=== PATIENT | male | born 1960 | race Caucasian/White ===

== ENCOUNTER 2018-01-24 19:52 | Inpatient (IN) | payer OTHER ==
[~2018-01-24] VITALS: Ht 175.3 cm; Wt 97.5 kg
--- NOTE | 2018-01-24 19:52 | NUR ---
PT TAKEN TO BED 1
--- NOTE | 2018-01-24 19:55 | NUR ---
ABIBA FOR ETOH FROM HOME WITH SYNCOPAL EPISODE PT DENIES N/V/D; SKIN IS PINK/WARM/DRY;AAOX4; LUNGS CLEAR BL; HR EVEN AND REGULAR; PATIENT POSITIONED FOR COMFORT; HOB ELEVATED; BEDRAILS UP X2; BED DOWN. ER MD MADE AWARE OF PT STATUS.
[2018-01-24 19:57] VITALS: BP 122/66
--- NOTE | 2018-01-24 20:46 | NUR ---
Dr. Lynch evaluating patient at bedside.
[2018-01-24] MEDS ORDERED: NACL 0.9% 1,000 ML IV ONE (20:50)
--- NOTE | 2018-01-24 21:25 | NUR ---
PT SENT TO [facility]
--- NOTE | 2018-01-24 21:25 | NUR ---
Felipe hunt in [facility] - 01/24/18 at 2205 by LEONARDO PT TAKEN TO CT
[2018-01-24 21:57] LABS: ALBUMIN 4.2 g/dL (3.4-5.0); ANION GAP 13.1 (8-16); CARBON DIOXIDE 27.8 mmol/L (21-32); CREATININE 0.8 mg/dL (0.7-1.3); TOTAL BILIRUBIN 0.7 mg/dL (0.0-1.0)
[2018-01-24 22:03] LABS: POTASSIUM 2.9 mmol/L (3.5-5.1)
[2018-01-24] MEDS ORDERED: KCL 20 MEQ/WATER INJ PREMIX 100 ML IV ONE (22:05)
[2018-01-24 22:40] LABS: BARBITURATE, URINE NEG. ng/ml (NEG <=200); BENZODIAZEPINE, URINE NEG. ng/mL (NEG <=200); CANNABINOID, URINE NEG. ng/mL (NEG <=50); COCAINE, URINE NEG. ng/mL (NEG <=300); OPIATE, URINE NEG. ng/mL (NEG <=2000); PHENCYCLIDINE SCREEN,URINE NEG. ng/mL (NEG <=25)
[2018-01-24] MEDS ORDERED: MORPHINE SULFATE 2 MG/ML SYR IVP PRN (23:20)
[2018-01-24] MEDS ORDERED: LORazepam 2 MG/ML VIAL IVP PRN (23:20)
[2018-01-24] MEDS ORDERED: ACETAMINOPHEN 325 MG TAB PO PRN (23:20)
[2018-01-24] MEDS ORDERED: ONDANSETRON 4 MG/2 ML VIAL IVP PRN (23:20)
[2018-01-24 23:36] LABS: BASOPHILS % (AUTO) 0.3 % (0.0-2.0); EOSINOPHILS # (AUTO) 0.1 K/uL (0-0.4); EOSINOPHILS % (AUTO) 1.8 % (0.0-4.0); HEMATOCRIT 27.9 % (36-52); HEMOGLOBIN 10.2 g/dL (12.0-18.0); LYMPHOCYTES # (AUTO) 0.7 K/uL (2.0-11.5); LYMPHOCYTES % (AUTO) 11.9 % (20.5-51.1); MEAN CORPUSCULAR HEMOGLOBIN 33 pg (27-31); MEAN CORPUSCULAR HGB CONC 37 g/dL (33-37); MEAN CORPUSCULAR VOLUME 90.8 fL (80-94); MONOCYTES # (AUTO) 0.3 K/uL (0.8-1.0); MONOCYTES % (AUTO) 4.4 % (1.7-9.3); NEUTROPHILS # (AUTO) 4.8 K/uL (1.8-7.7); NEUTROPHILS % (AUTO) 81.6 % (42.2-75.2); PLATELET COUNT (AUTO) 305 K/uL (140-450); RED BLOOD CELL COUNT(AUTO) 3.07 MIL/uL (4.20-6.10); RED CELL DISTRIBUTION WIDTH 12.5 % (11.6-13.7); WHITE BLOOD COUNT (AUTO) 5.9 K/uL (4.8-10.8)
--- NOTE | 2018-01-24 23:50 | NUR ---
PT ARRIVED ON UNIT VIA [facility] WITH ER NURSE. PT IN STABLE CONDITION. PT ABLE TO SELF TRANSFER FROM [facility] TO BED. PT ACCOMPANIED BY SISTER. PT IS A/0 X4. IV ACCES IN L HAND 20G WITH POTASSIUM INFUSING. IV IS PATENT AND INTACT. HEALING SCABS NOTED ON LLE. PICTURE IN CHART. HEART MONITOR APPLIED. MRSA SWAB TAKEN. ORIENTED PT TO ROOM AND USE OF CALL LIGHT. BED IS LOCKED, LOW POSITION, WITH SIDE RAILS UP X2. BOARD UPDATED. FALL PRECAUTIONS IN PLACE. WILL CONTINUE TO MONITOR PT.
[2018-01-25] VITALS (7 sets, daily range): BP systolic 156–186; BP diastolic 80–96
--- NOTE | 2018-01-25 00:03 | NUR ---
PT AWAKE, ALERT. NO S/S OF RESPIRATORY DISTRESS NOTED. TRANSFERRED PT TO TELE 111A BY ERIC. REPORT GIVEN TO ELÍAS ALLEN. PT'S SISTER WITH PT. PT IN STABLE CONDITION AT THIS MOMENT.
--- NOTE | 2018-01-25 00:15 | NUR ---
POTASSIUM INFUSION COMPLETE. PHARMACY CALLED REQUESTING CLARIFICATION OF ORDERS. MARCUS MAGALLANES MD.
[2018-01-25] MEDS ORDERED: FERR-252 PO (00:53)
[2018-01-25] MEDS ORDERED: THIA-34 PO ×2 (00:53→18:39)
[2018-01-25] MEDS ORDERED: MULT-464 PO (00:53)
[2018-01-25] MEDS ORDERED: SIMV20TA1 PO (00:53)
[2018-01-25] MEDS ORDERED: TAMS0.4C96 PO (00:53)
[2018-01-25] MEDS ORDERED: ORE25 PO (00:53)
[2018-01-25] MEDS ORDERED: ENAL10TA8 PO (00:53)
[2018-01-25] MEDS ORDERED: LISI-420 PO (00:53)
[2018-01-25] MEDS ORDERED: METO25TE2 PO (00:53)
--- NOTE | 2018-01-25 01:15 | NUR ---
MARIA A MEDINA. WILL WAIT FOR CALL.
--- NOTE | 2018-01-25 01:35 | NUR ---
PT RIPPED OUT IV. IV CANULA INTACT. WILL START NEW IV ACCESS.
--- NOTE | 2018-01-25 01:52 | NUR ---
PAGED AGAIN. WILL WAIT FOR CALL BACK.
--- NOTE | 2018-01-25 02:02 | NUR ---
NEW IV STARTED IN L WRIST 20G. IV IS FLUSHING WELL. PT TOLERATED WELL. WILL CONTINUE TO MONITOR.
--- NOTE | 2018-01-25 03:10 | NUR ---
SPOKE WITH . ORDERS CLARIFIED. WILL NOTIFY PHARMACY.
[2018-01-25] MEDS ORDERED: NACL 3% 500 ML IV ONE (04:00)
--- NOTE | 2018-01-25 04:10 | NUR ---
VS CHECKED. PT BP ELEVATED. WILL NOTIFY MD. PT HAS NO SIGNS OF DISTRESS. WILL CONTINUE TO MONITOR.
--- NOTE | 2018-01-25 05:02 | NUR ---
PAGED AGAIN. WILL WAIT FOR CALL BACK.
--- NOTE | 2018-01-25 05:14 | NUR ---
IVF STARTED. BP RECHECKED, 186/92. WAITING FOR MD TO CALL BACK. WILL CONTINUE TO MONITOR PT.
[2018-01-25 06:28] LABS: BASOPHILS % (AUTO) 0.3 % (0.0-2.0); EOSINOPHILS % (AUTO) 0.5 % (0.0-4.0); HEMATOCRIT 26.3 % (36-52); HEMOGLOBIN 9.5 g/dL (12.0-18.0); LYMPHOCYTES # (AUTO) 0.7 K/uL (2.0-11.5); LYMPHOCYTES % (AUTO) 9.2 % (20.5-51.1); MEAN CORPUSCULAR HEMOGLOBIN 33 pg (27-31); MEAN CORPUSCULAR HGB CONC 36 g/dL (33-37); MEAN CORPUSCULAR VOLUME 90.2 fL (80-94); MONOCYTES # (AUTO) 0.4 K/uL (0.8-1.0); NEUTROPHILS # (AUTO) 6.1 K/uL (1.8-7.7); PLATELET COUNT (AUTO) 267 K/uL (140-450); RED BLOOD CELL COUNT(AUTO) 2.91 MIL/uL (4.20-6.10); RED CELL DISTRIBUTION WIDTH 12.8 % (11.6-13.7); WHITE BLOOD COUNT (AUTO) 7.2 K/uL (4.8-10.8)
--- NOTE | 2018-01-25 06:39 | NUR ---
PAGED AGAIN. WILL WAIT FOR CALL BACK.
[2018-01-25 06:53] LABS: ALBUMIN 3.9 g/dL (3.4-5.0); ANION GAP 13.1 (8-16); CREATININE 0.6 mg/dL (0.7-1.3); POTASSIUM 3.1 mmol/L (3.5-5.1); TOTAL BILIRUBIN 0.9 mg/dL (0.0-1.0)
--- NOTE | 2018-01-25 07:15 | NUR ---
ENDORSED PT TO DAY SHIFT NURSE FOR CONTINUITY OF CARE. PT IN STABLE CONDITION.
--- NOTE | 2018-01-25 07:16 | NUR ---
RECEIVED REPORT FROM BUFFING TURNER AND COUNTER NURSE WILL CONTINUE WITH PLAN OF CARE. PATIENT LAST B/P 186/ NURSE PAGED MD. WILL NOTIFY MD OF ELEVATED B/P
--- NOTE | 2018-01-25 07:50 | NUR ---
NOTIFIED DR. JOSEPH REGARDING PT'S ELEVATED BP (175/89 MMHG, HR: 108/MIN. PT ASYMPTOMATIC. NO C/O PAIN. NO SOB NOTED). STATED HE WILL PLACE ORDERS. .
[2018-01-25] MEDS ORDERED: DEXT 5% / NACL 0.2% 1,000 ML IV SCH (08:05)
--- NOTE | 2018-01-25 08:43 | NUR ---
PATIENT HAS BEEN SCREENED AND CATEGORIZED MODERATE NUTRITION RISK. PATIENT WILL BE SEEN WITHIN 3-5 DAYS OF ADMISSION. 01/27/18 01/29/[address]
[2018-01-25] MEDS: hydrALAZINE 25 MG TAB PO PRN ×2 (08:48→12:45)
[2018-01-25] MEDS ORDERED: THIAMINE 200 MG/2 ML VIAL IM SCH (09:00)
[2018-01-25] MEDS ORDERED: NIFEdipine 30 MG TABER PO SCH (09:00)
[2018-01-25] MEDS ORDERED: KCL 20 MEQ/WATER INJ PREMIX 100 ML IV SCH (09:00)
[2018-01-25] MEDS ORDERED: FOLIC ACID 1 MG TAB PO SCH (09:00)
[2018-01-25] MEDS ORDERED: NACL 0.9% 1,000 ML IV SCH (09:00)
--- NOTE | 2018-01-25 09:08 | NUR ---
PT REFUSED ROBLEDO CATHETER INSERTION FOR STRICT I&O MONITORING, RISKS AND BENEFITS EXPLAINED TO PT. PT VERBALIZED UNDERSTANDING. CLEAN URINAL PLACED AT THE BEDSIDE TO MONITOR URINE OUTPUT.
--- NOTE | 2018-01-25 09:15 | NUR ---
CM NOTE ADMISSION CHART REVIEW DONE. INITIAL REVIEW FAXED TO [facility] [phone] RAZIA # [phone]
--- NOTE | 2018-01-25 09:30 | NUR ---
PT SEEN BY DR. JOSEPH WITH NEW ORDERS. DR. JOSEPH ALSO NOTIFIED REGARDING PT'S REFUSAL OF INDWELLING ROBLEDO CATHETER PLACEMENT.
--- NOTE | 2018-01-25 10:30 | NUR ---
URINE SPECIMEN COLLECTED AND SENT TO LAB FOR RANDOM URINE NA, CREATININE AND OSMOLALITY ORDERED.
--- NOTE | 2018-01-25 10:39 | NUR ---
PT C/O PAIN ON THE IV SITE WHILE K-RIDER IS ON GOING. DR. JOSEPH MADE AWARE. K RIDER DISCONTINUED. K-DUR PO GIVEN ORDERED TO REPLACE K LOSS.
[2018-01-25] MEDS ORDERED: POTASSIUM CHLORIDE 10 MEQ TABER PO SCH (10:40)
--- NOTE | 2018-01-25 12:40 | NUR ---
PATIENT COMPLAINED OF NAUSEA. ZOFRAN GIVEN PER ORDERS. WILL CONTINUE TO MONITOR. CALL LIGHT WITHIN REACH AND BED ON LOWEST POSITION.
--- NOTE | 2018-01-25 13:15 | NUR ---
PATIENT REPORTS DECREASE IN NAUSEA. CALL LIGHT WITHIN REACH. WILL CONTINUE TO MONITOR
[2018-01-25 17:15] LABS: ANION GAP 13.7 (8-16); CARBON DIOXIDE 26.9 mmol/L (21-32); POTASSIUM 3.6 mmol/L (3.5-5.1)
[2018-01-25 17:16] LABS: CREATININE 0.7 mg/dL (0.7-1.3); TOTAL BILIRUBIN 1.1 mg/dL (0.0-1.0)
[2018-01-25 17:17] LABS: ALBUMIN 3.8 g/dL (3.4-5.0)
[2018-01-25 18:11] LABS: CREATININE,URINE RANDOM 60 mg/dL (30-125); URINE SODIUM, RANDOM 56 mmol/l (40-220)
[2018-01-25] MEDS ORDERED: VITA1TAB44 PO (18:39)
--- NOTE | 2018-01-25 19:18 | NUR ---
Motorcycle Delivery Driver Notes:I faxed Patient's MD order for high risk Clinic follow up appointment before discharge to [facility].
--- NOTE | 2018-01-25 19:24 | NUR ---
INFORMED PATIENT REGARDING DISCHARGE ORDER, PATIENT VERBALIZED UNDERSTANDING. PATIENT IS STABLE. NO DISTRESS NOTED AT THIS TIME. ENDORSED PATIENT TO EMAIL DESIGNER NURSE TO CONTINUE THE DISCHARGE PROCESS. HOME MEDS FROM PHARMACY ENDORSED TO EMAIL DESIGNER NURSE TO GIVE TO PATIENT UPON DISCHARGE.
--- NOTE | 2018-01-25 19:25 | NUR ---
RECEIVED REPORT FROM DAY SHIFT RN FOR CONTINUITY OF CARE. PT IS A/OX4, ON ROOM AIR. PT IS ABLE TO MAKE NEEDS KNOWN, ABLE TO FOLLOW COMMANDS. PT IS ON BEDREST AND SKIN IS INTACT. PT HAS A 20G IV TO LEFT FOREARM, ASYMPTOMATIC. DISCUSSED PLAN OF CARE WITH PT, PT VERBALIZED UNDERSTANDING. VITAL SIGNS WITHIN NORMAL LIMITS. PT STABLE, NO SIGNS OF DISTRESS NOTED AT THIS TIME. BED IN LOWEST POSITION, BED ALARM ON. CALL LIGHT WITHIN REACH, WILL CONTINUE TO MONITOR.
--- NOTE | 2018-01-25 20:20 | NUR ---
DISCHARGE INSTRUCTIONS AND EDUCATION GIVEN TO PT AND HIS SISTER, GAVE OPPORTUNITY FOR THEM TO ASK QUESTIONS AND ANSWERED QUESTIONS. PT SIGNED ALL PAPERWORK. REMOVED IV, SCD'S, AND TELE MONITOR. PT GOT DRESSED AND PASTEURIZING SUPERVISOR WHEELED PT OUT OF UNIT IN WHEELCHAIR WITH HIS SISTER AND OF HIS PERSONAL BELONGINGS. PT LEFT IN STABLE CONDITION.
--- NOTE | 2018-01-25 20:40 | NUR ---
DISCHARGE INSTRUCTIONS AND EDUCATION GIVEN TO PT AND HIS SISTER, GAVE OPPORTUNITY FOR THEM TO ASK QUESTIONS AND ANSWERED QUESTIONS. PT SIGNED ALL PAPERWORK. REMOVED IV, SCD'S, AND TELE MONITOR. PT GOT DRESSED AND REAL ESTATE LEGAL SECRETARY WHEELED PT OUT OF UNIT IN WHEELCHAIR WITH HIS SISTER. PT LEFT IN STABLE CONDITION. Addendum: 01/25/18 at 2233 by Josefa Tong RN PLEASE DISREGARD.
[2018-01-26] MEDS ORDERED: THIAMINE 100 MG TAB PO SCH (09:00)
== END 2018-01-25 20:20 | disposition home or self-care (01) | DRG 425 ==
LOC: MED 19:52 → MTU 23:19
PROVIDERS: ADMIT Hospitalist; ATTEND Hospitalist
DX: E87.6 Hypokalemia (principal); G92 Toxic encephalopathy; F10.229 Alcohol dependence with intoxication, unspecified; E87.1 Hypo-osmolality and hyponatremia; E78.5 Hyperlipidemia, unspecified; I10 Essential (primary) hypertension; F17.210 Nicotine dependence, cigarettes, uncomplicated; Y90.6 Blood alcohol level of 120-199 mg/100 ml; Z85.46 Personal history of malignant neoplasm of prostate; Z92.3 Personal history of irradiation
CPT/HCPCS: 36415; 70450; 71045; 72125; 80053; 80305; 82570; 83735; 83930; 83935; 84300; 84484; 85025; 87081; 93005; 96360; 99285; G0482; J2405; J3411; J3480; J3490; J7030; Q0092

== ENCOUNTER 2018-04-23 08:46 | Day surgery (SDC) | payer OTHER ==
[~2018-04-23 08:46] MED LIST: ENAL10TA8 PO; FERR-252 PO; METO25TE2 PO; MULT-464 PO; SIMV20TA1 PO; TAMS0.4C96 PO; THIA-34 PO; VITA1TAB44 PO
[2018-04-23] MEDS ORDERED: KETOROLAC 30 MG/ML VIAL ONE (10:31)
[2018-04-23] MEDS ORDERED: LIDOCAINE 2% 100 MG/5 ML UJET TP ONE (10:31)
[2018-04-23] MEDS ORDERED: fentaNYL 0.05 MG/ML VIAL ONE (10:39)
[2018-04-23] MEDS ORDERED: LIDOCAINE VISCOUS 2% 20 ML UDC ONE (10:39)
[2018-04-23] MEDS ORDERED: MIDAZOLAM 2 MG/2 ML VIAL ONE (10:39)
== END 2018-04-23 10:45 | disposition home or self-care (01) ==
LOC: MDS 08:46 → MMU 08:46 → MDS 10:45
PROVIDERS: ATTEND Internal Medicine Gastroenterology
DX: K70.9 Alcoholic liver disease, unspecified (principal); K44.9 Diaphragmatic hernia without obstruction or gangrene; I10 Essential (primary) hypertension; E78.5 Hyperlipidemia, unspecified
CPT/HCPCS: J1885; J2250; J3010

== ENCOUNTER 2018-05-27 17:12 | Emergency (ER) | payer OTHER ==
[~2018-05-27] VITALS: Ht 167.6 cm; Wt 93.1 kg
[2018-05-27 17:26] VITALS: BP 157/95
--- NOTE | 2018-05-27 17:36 | NUR ---
Note undone in EDM - 05/27/18 at 1741 by MED1 58/M BIB FAMILY W/ C/O SYNCOPAL EPISODE AT 8 AM THIS MORNING. STATES HE DOES NOT KNOW WHY OR HOW. STATES HE WAS DRINKING ALCOHOL PRIOR TO THE EPISODE. STATES HE HAD 3 BEERS, BUT ACTING INEBRIATED, SLURRING SPEECH. AAOX4. GCS 15, AMBULATORY W/ UNSTEADY GAIT. RR EVEN AND UNLABORED. DENIES HITTING HEAD/LOC. HX HTN, HIGH CHOLESTEROL. PATIENT STATES PAIN OF 0/10 AT THIS TIME. PATIENT POSITIONED FOR COMFORT; HOB ELEVATED; BEDRAILS UP X2; BED DOWN. ER MD MADE AWARE OF PT STATUS.
[2018-05-27] MEDS ORDERED: NACL 0.9% 1,000 ML IV ONE (18:28)
[2018-05-27] MEDS ORDERED: ONDANSETRON 4 MG/2 ML VIAL IVP ONE (18:30)
[2018-05-27] MEDS ORDERED: FAMOTIDINE 20 MG/2 ML VIAL IVP ONE (18:30)
--- NOTE | 2018-05-27 18:36 | NUR ---
PT TAKEN TO X RAY & CT
--- NOTE | 2018-05-27 19:15 | NUR ---
EKG PERFORMED AT BEDSIDE WITH FAMILY MEMBER PRESENT
[2018-05-27 19:17] LABS: BASOPHILS # (AUTO) 0.2 K/uL (0.00-0.22); BASOPHILS % (AUTO) 2.3 % (0.0-2.0); EOSINOPHILS # (AUTO) 0.3 K/uL (0-0.4); EOSINOPHILS % (AUTO) 3.9 % (0.0-4.0); HEMATOCRIT 31.2 % (36-52); HEMOGLOBIN 10.5 g/dL (12.0-18.0); LYMPHOCYTES # (AUTO) 1.3 K/uL (2.0-11.5); LYMPHOCYTES % (AUTO) 17.1 % (20.5-51.1); MEAN CORPUSCULAR HEMOGLOBIN 30 pg (27-31); MEAN CORPUSCULAR HGB CONC 34 g/dL (33-37); MEAN CORPUSCULAR VOLUME 89.8 fL (80-94); MONOCYTES # (AUTO) 0.3 K/uL (0.8-1.0); MONOCYTES % (AUTO) 3.9 % (1.7-9.3); NEUTROPHILS # (AUTO) 5.4 K/uL (1.8-7.7); NEUTROPHILS % (AUTO) 72.8 % (42.2-75.2); PLATELET COUNT (AUTO) 314 K/uL (140-450); RED BLOOD CELL COUNT(AUTO) 3.47 MIL/uL (4.20-6.10); RED CELL DISTRIBUTION WIDTH 12.5 % (11.6-13.7); WHITE BLOOD COUNT (AUTO) 7.4 K/uL (4.8-10.8)
--- NOTE | 2018-05-27 19:18 | NUR ---
REPORT GIVEN TO DON ALLEN.
--- NOTE | 2018-05-27 19:20 | NUR ---
ASSUMED CARE OF PT AT THIS TIME. PT AWAITS LAB RESULTS AND MD DISPOSITION. NAD. VSS. S/O AT BEDSIDE. WILL CONTINUE TO MONITOR.
[2018-05-27 19:28] LABS: APPEARANCE,URINE CLEAR (CLEAR); BILIRUBIN,URINE NEGATIVE (NEGATIVE); BLOOD, URINE TRACE-L (NEGATIVE); COLOR,URINE YELLOW (YELLOW); LEUKOCYTE ESTERASE ,URINE NEGATIVE (NEGATIVE); NITRITE, URINE NEGATIVE (NEGATIVE); UGLUCOSE NEGATIVE (NEGATIVE)
[2018-05-27 19:30] LABS: BARBITURATE, URINE NEG. ng/ml (NEG <=200); BENZODIAZEPINE, URINE NEG. ng/mL (NEG <=200); CANNABINOID, URINE NEG. ng/mL (NEG <=50); COCAINE, URINE NEG. ng/mL (NEG <=300); OPIATE, URINE NEG. ng/mL (NEG <=2000); PHENCYCLIDINE SCREEN,URINE NEG. ng/mL (NEG <=25)
[2018-05-27 19:40] LABS: ALBUMIN 3.7 g/dL (3.4-5.0); CREATININE 0.8 mg/dL (0.7-1.3); TOTAL BILIRUBIN 0.2 mg/dL (0.0-1.0)
[2018-05-27 19:54] LABS: PROTHROMBIN TIME 9.9 secs (10.8-13.4)
[2018-05-27 20:30] VITALS: BP 148/94
--- NOTE | 2018-05-27 20:30 | NUR ---
Patient discharged with v/s stable. Written and verbal after care instructions given and explained. Patient verbalized understanding. Ambulatory with steady gait. All questions addressed prior to discharge. Advised to follow up with PMD.
== END 2018-05-27 20:30 | disposition home or self-care (01) ==
LOC: MED 17:12
DX: R55 Syncope and collapse (principal); F10.129 Alcohol abuse with intoxication, unspecified; D64.9 Anemia, unspecified; E87.1 Hypo-osmolality and hyponatremia; I10 Essential (primary) hypertension; Z85.46 Personal history of malignant neoplasm of prostate; Z79.899 Other long term (current) drug therapy
CPT/HCPCS: 36415; 70450; 71045; 80053; 80305; 81003; 82150; 82550; 83690; 84484; 85025; 85610; 85730; 93005; 96361; 96374; 96375; 99284; G0482; J2405; J3490; J7030; Q0092

== ENCOUNTER 2019-09-01 00:29 | Inpatient (IN) | payer OTHER ==
[~2019-09-01] VITALS: Ht 175.3 cm; Wt 95.3 kg
--- NOTE | 2019-09-01 00:32 | NUR ---
PT LUCIO ALS. TAKEN TO BED 11
[2019-09-01 00:34] VITALS: BP 131/75
--- NOTE | 2019-09-01 00:36 | NUR ---
Dr. Prasad examining patient.
[2019-09-01] MEDS ORDERED: NACL 0.9% 500 ML IV SCH (00:41)
--- NOTE | 2019-09-01 00:43 | NUR ---
59 Y/O MALE BIB [facility] PRESENTS WITH WEAKNESS/DIARRHEA/NAUSEA X1 DAY. PT STATES HE WAS EATING CORNNUTS EARLIER TODAY AND BECAME DIAPHORETIC, NAUSEOUS. PT STATES HE HAD MULTIPLE EPISODES OF EMESIS AND DIARRHEA WITH ABDOMINAL PAIN. PATIENT DOES NOT REPORT ANY ABDOMINAL PAIN AT THIS TIME. PATIENT STATES HE FEELS DARRYL BUT IS NOW GETTING LEG CRAMPS. RESP EVEN AND UNLABORED. LUNG SOUNDS CLEAR IN BILAT LOBES. BOWEL SOUNDS NORMOACTIVE IN ALL QUADRANTS. ABD SOFT/NON DISTENDED. CAP REFILL <3. MUCOUS MEMBRANES PINK AND MOIST. AAOX4. PMH: PROSTATE CANCER NKA
[2019-09-01] MEDS ORDERED: ONDANSETRON 4 MG/2 ML VIAL IVP ONE (00:45)
[2019-09-01] MEDS ORDERED: KETOROLAC 15 MG/ML VIAL IVP ONE (00:45)
[2019-09-01] MEDS ORDERED: PANTOPRAZOLE 40 MG INJ VIAL IVP ONE (00:45)
--- NOTE | 2019-09-01 00:46 | NUR ---
X-Ray at bedside.
[2019-09-01 02:04] LABS: BASOPHILS % (AUTO) 0.1 % (0.0-2.0); EOSINOPHILS # (AUTO) 0.1 K/uL (0-0.4); EOSINOPHILS % (AUTO) 0.7 % (0.0-4.0); HEMOGLOBIN 11.5 g/dL (12.0-18.0); LYMPHOCYTES # (AUTO) 1.4 K/uL (2.0-11.5); LYMPHOCYTES % (AUTO) 7.7 % (20.5-51.1); MEAN CORPUSCULAR HEMOGLOBIN 31 pg (27-31); MEAN CORPUSCULAR HGB CONC 34 g/dL (33-37); MEAN CORPUSCULAR VOLUME 90.8 fL (80-94); MONOCYTES # (AUTO) 0.6 K/uL (0.8-1.0); MONOCYTES % (AUTO) 3.4 % (1.7-9.3); NEUTROPHILS # (AUTO) 16.4 K/uL (1.8-7.7); NEUTROPHILS % (AUTO) 88.1 % (42.2-75.2); PLATELET COUNT (AUTO) 404 K/uL (140-450); RED BLOOD CELL COUNT(AUTO) 3.74 MIL/uL (4.20-6.10); WHITE BLOOD COUNT (AUTO) 18.6 K/uL (4.8-10.8)
[2019-09-01 02:20] LABS: LIPASE 143 U/L (73-393)
[2019-09-01 02:23] LABS: ALBUMIN 3.7 g/dL (3.4-5.0); ANION GAP 10.1 (8-16); CREATININE 1.9 mg/dL (0.6-1.3); POTASSIUM 3.1 mmol/L (3.5-5.1); TOTAL BILIRUBIN 0.8 mg/dL (0.0-1.0)
[2019-09-01 02:25] LABS: PROTHROMBIN TIME 9.8 secs (10.8-13.4)
--- NOTE | 2019-09-01 02:32 | NUR ---
2.3 LACTIC ACID CRITICAL VALUE FROM THE LAB. EMELIAD MADE AWARE.
[2019-09-01] MEDS ORDERED: NACL 0.9% 2,000 ML IV ONE (02:45)
[2019-09-01] MEDS ORDERED: POTASSIUM CHL 20 MEQ/NACL 0.9% 1,000 ML IV ONE (02:50)
[2019-09-01] MEDS ORDERED: cefTRIAXone 1,000 MG VIAL ONE (03:07)
--- NOTE | 2019-09-01 03:30 | NUR ---
RECEIVED FROM ER PER WHEELCHAIR AWAKE AND ALERT. TALKING WELL WITH CAREGIVERS IN [place]. NOTED WITH SLIGHT INTERMITTENT COUGHING AND A COMPLAINT OF ABDOMINAL PAIN WITH DIARRHEA. CARE PLANS FOR THE NIGHT DISCUSSED WITH HIM. CALL LIGHT WITH IN REACH. NO SOB. DENIES PAIN AT THIS TIME. MEDICATED WITH PAIN RELIEVER IN ER. SKIN INTACT. CTAB. ENCOURAGE TO CALL FOR ANY HELP OR ANY PAIN HE MIGHT HAVE.
--- NOTE | 2019-09-01 03:42 | NUR ---
Patient will be admitted to care of DR AGUIAR. Admited to MS. Will go to room 120B. Belongings list completed. Report to ALEJANDRO ARRIAGA.
[2019-09-01 03:50] VITALS: BP 138/90
--- NOTE | 2019-09-01 05:00 | NUR ---
PT. SLEEPING. NO RESTLESSNESS NOTED. NO DIARRHEA COMPLAINTS SINCE HE CAME TO FLOOR.
[2019-09-01] MEDS: NACL 0.9% 500 ML IV SCH ×4 (05:50→22:34)
[2019-09-01] MEDS ORDERED: ACETAMINOPHEN 650 MG SUPP RC PRN (05:55)
[2019-09-01] MEDS ORDERED: guaiFENesin DM 200/20 MG-10 ML 10 ML UDC PO PRN (05:55)
[2019-09-01] MEDS ORDERED: MORPHINE SULFATE 2 MG/ML SYR IVP PRN (05:55)
[2019-09-01] MEDS ORDERED: ONDANSETRON 4 MG/2 ML VIAL IVP PRN (05:55)
[2019-09-01] MEDS ORDERED: IPRATROPIUM 0.02% 0.5 MG/2.5 ML NEBU INH PRN (05:55)
[2019-09-01] MEDS ORDERED: ZOLPIDEM 5 MG TAB PO PRN (05:55)
[2019-09-01] MEDS ORDERED: MAGNESIUM OXIDE 400 MG TAB PO PRN (05:55)
[2019-09-01] MEDS ORDERED: BISACODYL 10 MG SUPP RC PRN (05:55)
[2019-09-01] MEDS ORDERED: DOCUSATE SODIUM 250 MG GELCAP PO PRN (05:55)
[2019-09-01] MEDS ORDERED: diphenhydrAMINE 50 MG/ML VIAL IVP PRN (05:55)
[2019-09-01] MEDS ORDERED: ALUMINUM HYD/MAG/SIMETHICONE 30 ML UDC PO PRN (05:55)
[2019-09-01] MEDS ORDERED: SODIUM PHOSPHATE 118 ML ENEM RC PRN (05:55)
[2019-09-01] MEDS ORDERED: LORazepam 2 MG/ML VIAL IVP PRN (05:55)
[2019-09-01] MEDS ORDERED: ALBUTEROL 0.083% 2.5 MG/3 ML NEBU INH PRN (05:55)
[2019-09-01] MEDS ORDERED: POTASSIUM CHLORIDE 10 MEQ TABER PO PRN (05:55)
[2019-09-01] MEDS ORDERED: MAG SULF 2000 MG/WATER PREMIX 50 ML IV PRN (05:55)
[2019-09-01] MEDS ORDERED: HYDROcodone/APAP 5/325 MG 1 TAB TAB PO PRN ×2 (05:55)
[2019-09-01] MEDS ORDERED: ACETAMINOPHEN 325 MG TAB PO PRN (05:55)
--- NOTE | 2019-09-01 06:35 | NUR ---
PATIENT HAS BEEN SCREENED AND CATEGORIZED MODERATE NUTRITION RISK. PATIENT WILL BE SEEN WITHIN 3-5 DAYS OF ADMISSION. 09/04/19-09/06/19 UNIQUE EMERY MS, RDN
--- NOTE | 2019-09-01 07:14 | NUR ---
ENDORSED TO AM RN FOR CONTINUITY OF CARE. PT. AWAKE AND ALERT. ABLE TO VERBALIZE NEEDS WELL. AFEBRILE.
--- NOTE | 2019-09-01 07:15 | NUR ---
RECEIVED REPORT FROM RECORD PRESS OPERATOR NURSE CORINA FOR CONTINUITY OF CARE. PATIENT IN STABLE CONDITION. RESPIRATIONS EVEN AND UNLABORED, ROOM AIR. IV INTACT AND PATENT. SAFETY MEASURES IN PLACE. BED IN LOW POSITION. CALL LIGHT AT BEDSIDE. WILL CONTINUE TO MONITOR.
[2019-09-01 08:00] VITALS: BP 158/83
[2019-09-01] MEDS: VIT-B COMP/VIT-C/FOLIC ACID 1 TAB PO SCH (09:45)
[2019-09-01] MEDS: LEVOFLOXACIN 500 MG/D5W PREMIX 100 ML IV SCH (09:45)
[2019-09-01] MEDS: THIAMINE 100 MG TAB PO SCH (09:45)
[2019-09-01] MEDS: METOPROLOL SUCCINATE 50 MG TABER PO SCH (09:45)
--- NOTE | 2019-09-01 09:50 | NUR ---
GAVE ORDERED DUE MEDICATIONS AT THIS TIME. PT TOLERATED WELL. BED IN LOW POSITION. CALL LIGHT AT BEDSIDE. WILL CONTINUE TO MONITOR.
--- NOTE | 2019-09-01 11:01 | NUR ---
PATIENT TALKING ON PHONE IN STABLE CONDITION. BED IN LOW POSITION. CALL LIGHT AT BEDSIDE. WILL CONTINUE TO MONITOR.
[2019-09-01 12:00] VITALS: BP 149/86
[2019-09-01] MEDS: metroNIDAZOLE 500 MG/NS PREMIX 100 ML IV SCH ×2 (13:15→20:41)
--- NOTE | 2019-09-01 13:33 | NUR ---
PATIENT WATCHING TV AT THIS TIME. RESPIRATIONS EVEN AND UNLABORED. BED IN LOW POSITION. CALL LIGHT AT BEDSIDE. WILL CONTINUE TO MONITOR.
--- NOTE | 2019-09-01 15:55 | NUR ---
PATIENT TALKING ON PHONE AT THIS TIME. BED IN LOW POSITION. BED ALARM ON. CALL LIGHT AT BEDSIDE. WILL CONTINUE TO MONITOR.
[2019-09-01 16:00] VITALS: BP 184/99
[2019-09-01] MEDS: cloNIDine 0.1 MG TAB PO PRN ×2 (16:50→22:33)
--- NOTE | 2019-09-01 17:20 | NUR ---
GAVE PRN B/P MEDICATIONS AT THIS TIME. B/P 184/99. PT IN STABLE CONDITION.
--- NOTE | 2019-09-01 18:20 | NUR ---
RECHECKED B/P 163/84 P 75
--- NOTE | 2019-09-01 19:21 | NUR ---
GAVE REPORT TO CALL CENTER CONSULTANT NURSE JEAN CLAUDE FOR CONTINUITY OF CARE. PT IN STABLE CONDITION.
--- NOTE | 2019-09-01 19:21 | NUR ---
RECEIVED PT AAOX4 , NID , PER NURSE PT HAD EPISODE OF INCREASED BP - WILL RE ASSESS BP . - CATAPRES GIVEN PRN . IV SITE INTACT AND PATENT , DENIES PAIN . POC DISCUSSED AND VERBALIZE UNDERSTANDING . SAFETY MEASURES IN [place] - CALL LIGHT WITHIN REACH , WILL CONT TO MONITOR.
[2019-09-01 20:00] VITALS: BP 162/100
[2019-09-01] MEDS ORDERED: SIMVASTATIN 20 MG TAB PO SCH (21:00)
[2019-09-01] MEDS ORDERED: TAMSULOSIN 0.4 MG CAP PO SCH (21:00)
[2019-09-02] VITALS: BP 170/98
--- NOTE | 2019-09-02 | NUR ---
MADE ROUNDS , NO S/S OF ACUTE DISTRESS NOTED AT THIS TIME .
[2019-09-02] MEDS: NACL 0.9% 500 ML IV SCH ×2 (01:50→06:15)
--- NOTE | 2019-09-02 02:00 | NUR ---
SLEEPING - CHEST RISE AND FALL EQUALLY.
[2019-09-02 04:00] VITALS: BP 150/88
--- NOTE | 2019-09-02 04:00 | NUR ---
MADE ROUNDS , NO S/S OF ACUTE DISTRESS NOTED AT THIS TIME.
[2019-09-02] MEDS: metroNIDAZOLE 500 MG/NS PREMIX 100 ML IV SCH ×2 (05:32→12:52)
--- NOTE | 2019-09-02 06:00 | NUR ---
RE ASSSES BP - 170/100 - CATAPRES P.O GIVEN , WILL CONT. TO MONITOR , DENIES ANY PAIN.
[2019-09-02] MEDS: cloNIDine 0.1 MG TAB PO PRN ×2 (06:17→16:13)
[2019-09-02 06:43] LABS: BASOPHILS % (AUTO) 0.5 % (0.0-2.0); EOSINOPHILS # (AUTO) 0.3 K/uL (0-0.4); EOSINOPHILS % (AUTO) 3.4 % (0.0-4.0); LYMPHOCYTES # (AUTO) 2.2 K/uL (2.0-11.5); LYMPHOCYTES % (AUTO) 26.8 % (20.5-51.1); MEAN CORPUSCULAR HEMOGLOBIN 31 pg (27-31); MEAN CORPUSCULAR HGB CONC 35 g/dL (33-37); MEAN CORPUSCULAR VOLUME 90.7 fL (80-94); MONOCYTES # (AUTO) 0.5 K/uL (0.8-1.0); MONOCYTES % (AUTO) 6.1 % (1.7-9.3); NEUTROPHILS # (AUTO) 5.2 K/uL (1.8-7.7); NEUTROPHILS % (AUTO) 63.2 % (42.2-75.2); PLATELET COUNT (AUTO) 325 K/uL (140-450); RED CELL DISTRIBUTION WIDTH 12.4 % (11.6-13.7); WHITE BLOOD COUNT (AUTO) 8.2 K/uL (4.8-10.8)
--- NOTE | 2019-09-02 07:36 | NUR ---
PT IS IN BED AWAKE AND RESPONSIVE TO VERBAL COMMANDS. NO COMPLAINS OF PAIN REPORTED. WILL CONTINUE TO MONITOR. CALL LIGHT IN REACH.
--- NOTE | 2019-09-02 07:36 | NUR ---
ENDORSED - PT - STABLE
[2019-09-02 08:00] VITALS: BP 154/79
[2019-09-02] MEDS ORDERED: NACL 0.9% 1,000 ML IV SCH (08:56)
[2019-09-02 09:07] LABS: APPEARANCE,URINE CLEAR (CLEAR); BILIRUBIN,URINE NEGATIVE (NEGATIVE); BLOOD, URINE NEGATIVE (NEGATIVE); COLOR,URINE YELLOW (YELLOW); LEUKOCYTE ESTERASE ,URINE NEGATIVE (NEGATIVE); NITRITE, URINE NEGATIVE (NEGATIVE); UGLUCOSE NEGATIVE (NEGATIVE)
[2019-09-02] MEDS: VIT-B COMP/VIT-C/FOLIC ACID 1 TAB PO SCH (09:30)
[2019-09-02] MEDS: METOPROLOL SUCCINATE 50 MG TABER PO SCH (09:30)
--- NOTE | 2019-09-02 09:30 | NUR ---
PT IS RESTING IN BED. PT IS ALERT AWAKE AND RESPONSIVE TO VERBAL STIMULI. PT AMBULATES TO BATHROOM WITH STEADY GAIT. NO DISTRESS NOTED. SAFETY MEASURES IN PLACE. WILL CONTINUE TO MONITOR. CALL LIGHT IN REACH.
[2019-09-02] MEDS: THIAMINE 100 MG TAB PO SCH (09:31)
[2019-09-02] MEDS: LEVOFLOXACIN 500 MG/D5W PREMIX 100 ML IV SCH (09:31)
--- NOTE | 2019-09-02 10:39 | NUR ---
DC PLANNIN YRS OLD MALE PATIENT WAS ADMITTED FROM HOME WITH A DX OF GASTROENTERITIS AND HYPONATREMIA . PT HAS A HX OF, OBESITY AND ALCOHOL ABUSE. NA + 128 STARTED ON IVF AND IV ABX LEVAQUIN AND FLAGYL . DC PLAN TO GO HOME WHEN ELECTROLYTES WILL BE CORRECTED AND IT IS EXPECTED TO BE FULLY RECOVERED BY TOMORROW 09/03/19. CM TO FOLLOW
--- NOTE | 2019-09-02 11:26 | NUR ---
Order Caller Note: Basic Screen: Yes High Risk DC Screen [place]: CRISTOFER DONIS Home Relationship: SISTER Pre-Admission Living Arrangements: Lives with Other Prior ADL Independent Current Home Health Name/Tel: N/A Current DME/02 Name/Tel: N/A Current Hospice Name/Tel: N/A Current Dialysis Name/Tel: N/A Healthcare Decision Maker: Patient Advance Directive No Physician Orders for Life Sustaining Treatment Form No Patient/Family Have Educational Needs No Discipline: Case Mgt/Social Svcs Tentative Discharge Plan/Destination: No Needs Identified Will require assistance post discharge: No Referred to Counseling Director: No Tentative Discharge Plan Summary: Patient is a 59-year-old male admitted for gastroenteritis. Patient has PMHX of hypertension, hyperlipedemia, obesity, and alcoholism. Patient was admitted from home where he lives with his sister and mother. SW contacted patient's sister Cristofer Donis [phone] to verify demographics. Per Cristofer, patient is independent with ADLS and is alert/oriented at baseline. Cristofer stated that patient has no history of mental health but does have history of alcoholism. SW met with patient to assess for substance abuse. Patient reported that he drinks alcohol daily and drinks an 18-pack of beer a day. Patient was guarded when speaking of alcohol use. SW provided substance abuse resources to patient. Tentative discharge plan is for patient to return home. No further needs identified. Signature: JAVIER Mccain Date: Sep 02, 2019 Time: 11:25
--- NOTE | 2019-09-02 12:30 | NUR ---
PT IS RESTING IN BED. PT IS ALERT AWAKE AND RESPONSIVE TO VERBAL STIMULI. NO COMPLAINS OF PAIN. NO DISTRESS NOTED. SAFETY MEASURES IN PLACE. WILL CONTINUE TO MONITOR. CALL LIGHT IN REACH.
--- NOTE | 2019-09-02 14:11 | NUR ---
PT IS RESTING IN BED. PT IS ALERT AWAKE AND RESPONSIVE TO VERBAL STIMULI. NO DISTRESS NOTED. SAFETY MEASURES IN PLACE. WILL CONTINUE TO MONITOR. CALL LIGHT IN REACH.
[2019-09-02] MEDS ORDERED: MAG SULF 2000 MG/WATER PREMIX 50 ML IV SCH (15:00)
[2019-09-02 16:00] VITALS: BP 192/100
[2019-09-02 18:04] LABS: ANION GAP 14.9 (8-16); CARBON DIOXIDE 27.2 mmol/L (21-32); POTASSIUM 4.1 mmol/L (3.5-5.1)
[2019-09-02 18:51] VITALS: BP 188/95
[2019-09-02] MEDS ORDERED: cloNIDine 0.1 MG TAB PO SCH (19:00)
[2019-09-02] MEDS ORDERED: MAGN250T6 PO ×2 (19:18)
--- NOTE | 2019-09-02 19:26 | NUR ---
RECEVIED PT AAOX4 , NID , HAD EPISODE OF HIGH BP JUST GIVEN CATAPRES NURSE FLORENCIA SAID. SUPPOSED TO BE FOR RE ASSESSMENT OF BP BUT THE PT EAGER TO GO HOME . FLORENCIA CALL TO DOCTOR ABOUT PT WANTS TO GO HOME AND CAN'T WAIT BP RE ASSESSMENT . DISCHARGE PAPERS ALREADY SIGNED AND GIVEN TO PT C/O FLORENCIA. - WILL WAIT FURTHER ORDER.
--- NOTE | 2019-09-02 19:26 | NUR ---
PT WAS TO BE DISCHARGED TO IF MAGNESIUM LEVELS WERE NORMAL. LAB RESULTS CAME BACK MAGNESIUM LEVELS WERE 1.2. BLOOD PRESSURE WAS HIGH 188/95. NOTIFIED DR BRASHER. PER DR BRASHER GIVE HIM ANOTHER DOSE OF CLONIDINE 01. MG AND DISCHARGE HIM. NOTIFIED CHARGE NURSE OF LAB VALUES. CHARGE NURSE TOLE TO HOLD PATIENT UNTIL BLOOD PRESSURE CAN BE TAKEN IN ONE HOUR. DR JOSEPH CALLED REPORTED TO DR JOSEPH THAT DR BRASHER SAID PT CAN BE DISCHARGED. DR JOSEPH SAID THAT HE WILL FAX MEDICATION TO HIS PHARMACY. PT IN THE MEAN TIME DID NOT WANT TO WAIT AND SAID HE WANTS TO GO HOME. NOTIFIED CHARGE NURSE AND DR JOSEPH. REPORT WAS GIVEN TO RN ON SITE NURSE. PT WAS DISCHARGED. DISCHARGE PAPERS SIGNED. IV REMOVED BY ALEJANDRO LIMA. ID BAND REMOVED BY ALEJANDRO LIMA. PT WAS ASYMPTOMATIC AT DISCHARGE. PT WALKED WITH A STEADY GAIT. SKIN INTACT. PT CALLED SISTER TO PICK HIM UP. BELONGINGS WITH PATIENT. PRESCRIPTION GIVEN TO PATIENT. BELONGINGS WITH PATIENT.
--- NOTE | 2019-09-02 19:30 | NUR ---
PER FLORENCIA SAVAGE'S ORDER DISCHARGE PT . TODAY . IV CANNULA REMOVED - INTACT NEEDLE , MIN. BLEEDING - PROCEDURE TOLERATED WELL . CHARGE NURSE INFORMED .
--- NOTE | 2019-09-02 19:40 | NUR ---
PT. ASYMPTOMATIC BP 160/100 - ASSIST TO LOBBY PER WHEELCHAIR - CHIEF OF STAFF BY HIS SISTER.
== END 2019-09-02 19:35 | disposition home or self-care (01) | DRG 469 ==
LOC: MED 00:29 → MTU 02:54
PROVIDERS: ADMIT Internal Medicine Pulmonary Disease; ATTEND Internal Medicine Pulmonary Disease
DX: N17.9 Acute kidney failure, unspecified (principal); E44.0 Moderate protein-calorie malnutrition; E83.42 Hypomagnesemia; E87.1 Hypo-osmolality and hyponatremia; K52.9 Noninfective gastroenteritis and colitis, unspecified; E87.6 Hypokalemia; E86.0 Dehydration; E66.9 Obesity, unspecified; E78.5 Hyperlipidemia, unspecified; F10.10 Alcohol abuse, uncomplicated; F17.210 Nicotine dependence, cigarettes, uncomplicated; I10 Essential (primary) hypertension; Z68.31 Body mass index [BMI] 31.0-31.9, adult; Z79.899 Other long term (current) drug therapy; Z85.46 Personal history of malignant neoplasm of prostate; A05.9 Bacterial foodborne intoxication, unspecified; Y90.0 Blood alcohol level of less than 20 mg/100 ml
CPT/HCPCS: 36415; 71045; 80048; 80053; 81003; 83605; 83690; 83735; 83880; 84100; 84484; 85025; 85610; 85730; 87040; 87081; 87086; 96374; 96375; 99285; C9113; G0482; J0696; J1885; J1956; J2405; J3475; J3490; J7030; Q0092

== ENCOUNTER 2020-07-31 16:57 | Emergency (ER) | payer OTHER ==
[~2020-07-31] VITALS: Ht 180.3 cm; Wt 86.2 kg
[~2020-07-31 16:57] MED LIST changes: +ENAL10TA51 PO; -ENAL10TA8 PO; +MAGN250T6 PO
[2020-07-31 17:20] VITALS: BP 220/114
[2020-07-31 17:58] LABS: BASOPHILS # (AUTO) 0.1 K/uL (0.00-0.22); BASOPHILS % (AUTO) 0.9 % (0.0-2.0); EOSINOPHILS # (AUTO) 0.3 K/uL (0-0.4); EOSINOPHILS % (AUTO) 3.7 % (0.0-4.0); HEMATOCRIT 26.3 % (36-52); HEMOGLOBIN 9.3 g/dL (12.0-18.0); LYMPHOCYTES # (AUTO) 2.6 K/uL (2.0-11.5); LYMPHOCYTES % (AUTO) 36.1 % (20.5-51.1); MEAN CORPUSCULAR HEMOGLOBIN 31 pg (27-31); MEAN CORPUSCULAR HGB CONC 35 g/dL (33-37); MEAN CORPUSCULAR VOLUME 88.1 fL (80-94); MONOCYTES # (AUTO) 0.3 K/uL (0.8-1.0); MONOCYTES % (AUTO) 4.8 % (1.7-9.3); NEUTROPHILS # (AUTO) 3.9 K/uL (1.8-7.7); NEUTROPHILS % (AUTO) 54.5 % (42.2-75.2); PLATELET COUNT (AUTO) 323 K/uL (140-450); RED BLOOD CELL COUNT(AUTO) 2.99 MIL/uL (4.20-6.10); RED CELL DISTRIBUTION WIDTH 12.8 % (11.6-13.7); WHITE BLOOD COUNT (AUTO) 7.1 K/uL (4.8-10.8)
[2020-07-31 18:09] LABS: ALBUMIN 3.8 g/dL (3.4-5.0); ANION GAP 12.1 (8-16); CARBON DIOXIDE 28.4 mmol/L (21-32); CREATININE 1.1 mg/dL (0.6-1.3); POTASSIUM 3.5 mmol/L (3.5-5.1); TOTAL BILIRUBIN 0.3 mg/dL (0.0-1.0)
[2020-07-31] MEDS ORDERED: LABETALOL 100 MG/20 ML VIAL IVP ONE ×2 (18:25→20:05)
[2020-07-31 19:40] LABS: APPEARANCE,URINE CLEAR (CLEAR); BILIRUBIN,URINE NEGATIVE (NEGATIVE); BLOOD, URINE NEGATIVE (NEGATIVE); COLOR,URINE YELLOW (YELLOW); LEUKOCYTE ESTERASE ,URINE NEGATIVE (NEGATIVE); NITRITE, URINE NEGATIVE (NEGATIVE); UGLUCOSE NEGATIVE (NEGATIVE)
[2020-07-31 19:48] LABS: BARBITURATE, URINE NEGATIVE ng/ml (NEG <=200); BENZODIAZEPINE, URINE NEGATIVE ng/mL (NEG <=200); CANNABINOID, URINE POSITIVE ng/mL (NEG <=50); COCAINE, URINE NEGATIVE ng/mL (NEG <=300); OPIATE, URINE NEGATIVE ng/mL (NEG <=2000); PHENCYCLIDINE SCREEN,URINE NEGATIVE ng/mL (NEG <=25)
[2020-07-31] MEDS ORDERED: amLODIPine 5 MG TAB PO ONE (23:10)
[2020-08-01] MEDS ORDERED: ASPIRIN 325 MG TAB PO ONE ×2 (02:55→03:05)
[2020-08-01] MEDS ORDERED: ENALAPRILAT 2.5 MG/2 ML VIAL IVP ONE ×2 (04:40)
[2020-08-01] MEDS ORDERED: ACETAMINOPHEN EXTRA STRENGTH 500 MG TAB PO ONE ×2 (08:15)
[2020-08-01] MEDS ORDERED: METOPROLOL 25 MG TAB PO ONE (08:35)
[2020-08-01 09:44] VITALS: BP 186/99
== END 2020-08-01 09:45 | disposition designated cancer center or children's hospital (05) ==
LOC: MED 16:57
DX: R47.1 Dysarthria and anarthria (principal); R26.0 Ataxic gait; M79.601 Pain in right arm; Z20.822 Contact with and (suspected) exposure to COVID-19
CPT/HCPCS: 36415; 70450; 70496; 71045; 73020; 73060; 80053; 80305; 81003; 84484; 85025; 87426; 96374; 96375; 99285; J3490; Q9967

== ENCOUNTER 2020-09-08 01:05 | Emergency (ER) | payer OTHER ==
[~2020-09-08] VITALS: Ht 175.3 cm; Wt 82.6 kg
[2020-09-08 01:14] VITALS: BP 136/77
--- NOTE | 2020-09-08 01:14 | NUR ---
TI BED VIA WHEELCHAIR
--- NOTE | 2020-09-08 01:20 | NUR ---
COVERING PRIMARY RN FOR LUNCH. SEE COMPLETE ASSESSMENT.
--- NOTE | 2020-09-08 01:38 | NUR ---
DR. JUNIOR AT BEDSIDE FOR EVALUATION
[2020-09-08] MEDS ORDERED: NACL 0.9% 1,000 ML IV ONE (01:45)
[2020-09-08] MEDS ORDERED: KETOROLAC 30 MG/ML VIAL IVP ONE (01:45)
--- NOTE | 2020-09-08 01:48 | NUR ---
BLOOD DRAWN VIA IV START AND HANDED TO CUT ROLL MACHINE OPERATORGERONIMO
[2020-09-08 02:01] LABS: BASOPHILS # (AUTO) 0.1 K/uL (0.00-0.22); BASOPHILS % (AUTO) 0.7 % (0.0-2.0); EOSINOPHILS # (AUTO) 0.6 K/uL (0-0.4); EOSINOPHILS % (AUTO) 6.8 % (0.0-4.0); HEMATOCRIT 23.3 % (36-52); HEMOGLOBIN 8.2 g/dL (12.0-18.0); LYMPHOCYTES # (AUTO) 2.6 K/uL (2.0-11.5); LYMPHOCYTES % (AUTO) 30.8 % (20.5-51.1); MEAN CORPUSCULAR HEMOGLOBIN 31 pg (27-31); MEAN CORPUSCULAR HGB CONC 35 g/dL (33-37); MEAN CORPUSCULAR VOLUME 89.3 fL (80-94); MONOCYTES # (AUTO) 0.4 K/uL (0.8-1.0); NEUTROPHILS # (AUTO) 4.7 K/uL (1.8-7.7); NEUTROPHILS % (AUTO) 56.7 % (42.2-75.2); PLATELET COUNT (AUTO) 318 K/uL (140-450); RED CELL DISTRIBUTION WIDTH 12.8 % (11.6-13.7); WHITE BLOOD COUNT (AUTO) 8.3 K/uL (4.8-10.8)
--- NOTE | 2020-09-08 02:07 | NUR ---
PT TAKEN TO CT
[2020-09-08 02:17] LABS: ALBUMIN 3.7 g/dL (3.4-5.0); ANION GAP 11.9 (8-16); CARBON DIOXIDE 25.3 mmol/L (21-32); CREATININE 0.9 mg/dL (0.6-1.3); POTASSIUM 4.2 mmol/L (3.5-5.1); TOTAL BILIRUBIN 0.4 mg/dL (0.0-1.0)
--- NOTE | 2020-09-08 02:29 | NUR ---
PT BACK FROM CT
[2020-09-08] MEDS ORDERED: MORPHINE SULFATE 4 MG/ML SYR IVP ONE (02:55)
[2020-09-08] MEDS ORDERED: NAPR-54 PO (04:34)
[2020-09-08] MEDS ORDERED: MORPHINE SULFATE 4 MG/ML SYR IM ONE (04:55)
[2020-09-08 05:10] VITALS: BP 145/68
--- NOTE | 2020-09-08 05:10 | NUR ---
Patient discharged with v/s stable. Written and verbal after care instructions given and explained. Patient alert, oriented and verbalized understanding of instructions. Wheel Chair Assisted with to car. All questions addressed prior to discharge. ID band removed. Patient advised to follow up with PMD. Rx of NAPROXEN given. Patient educated on indication of medication including possible reaction and side effects. Opportunity to ask questions provided and answered.
== END 2020-09-08 05:10 | disposition home or self-care (01) ==
LOC: MED 01:05
DX: T85.848A Pain due to other internal prosthetic devices, implants and grafts, initial encounter (principal); R10.31 Right lower quadrant pain; I10 Essential (primary) hypertension; F17.200 Nicotine dependence, unspecified, uncomplicated; Z85.46 Personal history of malignant neoplasm of prostate; Z98.890 Other specified postprocedural states; Z79.899 Other long term (current) drug therapy; Y84.8 Other medical procedures as the cause of abnormal reaction of the patient, or of later complication, without mention of misadventure at the time of the procedure; Y92.89 Other specified places as the place of occurrence of the external cause
CPT/HCPCS: 36415; 72192; 80053; 84484; 85025; 87040; 96361; 96372; 96374; 96375; 99284; J1885; J2270; J7030